=== PATIENT | male | born 1950 | race Caucasian/White ===

== ENCOUNTER → 2025-04-16 09:12 | Outpatient (REF) | payer MEDICARE, OTHER, SELFPAY ==
[2025-04-16 09:53] LABS: Hematocrit 55.4 % (39.0-52.0); Hemoglobin 17.6 g/dL (13.0-18.0); Mean Corp Hgb Conc. 31.8 g/dL (33.0-37.0); Mean Corpuscular Volume 97.5 fL (80.0-94.0); Nucleated Red Blood Cells % 0 % (-); Platelet Count 170 10^3/uL (130-400); Red Cell Dist. Width 14.1 % (11.5-14.5)
[2025-04-16 10:01] LABS: INR 1.28; PT 16.5 Sec (11.4-14.6)
[2025-04-16 11:19] LABS: ALT (SGPT) 20 U/L (0-50); AST (SGOT) 19 U/L (17-59); Albumin 3.9 g/dl (3.5-5.0); Alkaline Phosphatase 78 U/L (38-126); Blood Urea Nitrogen 23 mg/dl (9-20); Calcium 10.0 mg/dl (8.4-10.2); Carbon Dioxide 27 mmol/L (22-30); Chloride 108 mmol/L (98-107); Glucose 114 mg/dl (70-99); Magnesium 2.1 mg/dl (1.6-2.3); Potassium 5.3 mmol/L (3.5-5.1); Sodium 142 mmol/L (135-145); Total Protein 6.5 g/dl (6.3-8.2); eGFR 44.38
== END ==
LOC: SDSPAT 09:12
PROVIDERS: ATTENDING PHYSICIAN Internal Medicine Cardiovascular Disease; FAMILY PHYSICIAN Family Medicine; OTHER PHYSICIAN Internal Medicine Cardiovascular Disease
DX: I48.19 Other persistent atrial fibrillation (principal)
CPT/HCPCS: 36415; 75572; 80053; 83735; 85025; 85610; 86850; 86900; 86901; 93005; Q9967

== ENCOUNTER → 2025-05-01 07:36 | Outpatient (REF) | payer MEDICARE, OTHER, SELFPAY ==
[2025-05-01 09:28] LABS: Blood Urea Nitrogen 26 mg/dl (9-20); Calcium 9.5 mg/dl (8.4-10.2); Carbon Dioxide 33 mmol/L (22-30); Chloride 101 mmol/L (98-107); Glucose 107 mg/dl (70-99); Potassium 3.8 mmol/L (3.5-5.1); Sodium 143 mmol/L (135-145); eGFR 56.93
== END ==
LOC: RAD 07:36
PROVIDERS: ATTENDING PHYSICIAN Physician Assistant
DX: E87.5 Hyperkalemia (principal); J90 Pleural effusion, not elsewhere classified
CPT/HCPCS: 36415; 71046; 80048

== ENCOUNTER 2025-05-08 05:54 | Day surgery (SDC) | payer MEDICARE, OTHER, SELFPAY ==
[2025-04-16 09:28] VITALS: BMI 46.1
--- NOTE | 2025-04-16 09:37 | HPS.HSE ---
Family Physician
-
Family Physician: NO INTERVIEW UNKNOWN
Chief Complaint
-
Persistent atrial fibrillation.
History of Present Illness
The patient is a 74 year old morbidly obese, male presenting today for persistent atrial fibrillation. He does report symptoms of fatigue, intermittent palpitations, exertional dyspnea, and malaise all likely associated with this
diagnosis. He previously underwent a cardioversion in December of this year; unfortunately, his arrhythmia returned within weeks of this procedure. He is on current pharmacological therapy with Metoprolol Succinate. He has failed previous medical
therapy with Multaq. He does report compliance with Eliquis for oral anticoagulation. He notes that his symptoms associated with his arrhythmia greatly interfere with his activities of daily living and overall impact his quality of life. He is
interested in pursuing pulmonary vein isolation for further arrhythmia management. He denies any complaints today such as chest pain, shortness of breath at rest, nausea, vomiting, diarrhea, lightheadedness, dizziness, cough, sore throat, or fever.
Medical History
Past Medical History
Past Medical History: Reports Other
Additional Past Medical History:
1. Persistent atrial fibrillation, status post cardioversion 12/2024; pharmacological therapy with Metoprolol Succinate and oral anticoagulation with Eliquis.
2. Hypertension.
3. Hyperlipidemia.
4. Mild bilateral carotid artery stenosis.
5. Chronic peripheral edema with suspected venous insufficiency.
6. Obstructive sleep apnea, compliant with CPAP (setting 10).
7. Left sided, moderate pleural effusion on chest imaging.
8. Pulmonary nodule.
9. Chronic kidney disease stage 3.
10. Non-insulin dependent diabetes with neuropathy.
11. Nephrolithiasis.
12. Ambulatory dysfunction secondary to right quadriceps injury, status post repair 2023.
13. Sciatica.
14. Osteoarthritis.
15. Prostate cancer, status post prostatectomy.
16. Difficult intubation per records.
17. Morbid obesity, BMI 46.0.
18. Remote history of tobacco abuse.
Past Surgical History: Reports Other
Additional Past Surgical History:
1. Cardioversion.
2. Right quadriceps tendon repair.
3. Prostatectomy.
4. Appendectomy.
5. Kidney stone extraction.
6. Vasectomy.
7. Colonoscopy x2.
Social History
Tobacco: Former Smoker (He is a former remote cigar and pipe smoker. )
Alcohol: None (His last reported alcohol was 6 years ago. )
Personal:
Living: Other (He lives with his in a 1 story home with a basement. )
Family History
Family History: Not pertinent
Allergies / Home Medications
Allergy/Medication List:
Home medications:
1. Eliquis 5 mg p.o. twice a day.
2. Cholecalciferol 50 mcg p.o. daily.
3. Trulicity 1.5 mg subcutaneous on Mondays.
4. Jardiance 25 mg p.o. daily.
5. Furosemide 40 mg p.o. daily as needed.
6. Glipizide 10 mg p.o. twice a day.
7. Krill oil 1 capsule p.o. daily.
8. Lisinopril 40 mg p.o. daily.
9. Metformin 500 mg p.o. daily.
10. Metoprolol Succinate 100 mg p.o. daily.
11. Pioglitazone 30 mg p.o. daily.
12. Probiotic 1 tablet p.o. daily.
13. Simvastatin 20 mg p.o. at bedtime.
14. Shelbi 180 mg p.o. daily as needed.
Allergies: Pollen. No known drug allergies.
Review of Systems
-
A 12 point ROS was completed and negative except as noted: Yes
Physical Exam
Vital Signs
Blood pressure 166/87. Heart rate 52. Respirations 18. Pulse ox 98% on room air.
Height 6 feet. Weight 154 kg. BMI 46.0.
Physical Exam
General: Well Developed, Well Nourished and No Apparent Distress
HEENT: NormoCephalic, Moist mucous membranes, Atraumatic and PERRLA
Respiratory: Non Labored Respirations and Decreased Breath Sounds
Cardiac: Irregular Rhythm
GI: Soft, Non Tender, Non Distended and Other (Morbidly obese. )
Musculoskeletal: Edema, Left Lower Extremity, Edema, Right Lower Extremity and Other (Venous stasis changes to bilateral lower extremities. 2 small, superficial wounds to posterior right leg without visible signs of infection. )
Skin: Warm and Dry
Neuro: AO x 3 and Nonfocal/grossly intact
Laboratory Results
-
DIAGNOSTIC STUDIES as of 04/16/2025: White blood cell count 6.9. Hemoglobin 17.6. Platelet count 170,000. PT 16.5. INR 1.28. Sodium 142. Potassium 5.3. BUN 23. Creatinine 1.6. Glucose 114. Calcium 2.1. AST 19. ALT 20. Type and screen O positive.
DIAGNOSTIC STUDIES as of 05/01/2025: Sodium 143. Potassium 3.8. BUN 26. Creatinine 1.3. Glucose 107. Calcium 9.5.
EKG 04/16/2025: Atrial fibrillation with slow ventricular response. Cannot rule out anterior infarct, age undetermined.
Chest CT 04/16/2025: Short segment common vestibule for the left superior and inferior pulmonary veins, fairly commonly seen and considered normal variant. No evidence for left atrial thrombus. Moderate left pleural effusion with associated
compressive atelectasis. Tiny 4 mm right lower lobe pulmonary nodule, likely benign.
Chest x-ray 05/01/2025: Moderate left pleural effusion, likely with some layering along the lateral chest wall. Left lower lobe airspace disease may also be present.
Impression/Plan
-
IMPRESSION/PLAN:
1. Persistent atrial fibrillation: The patient is in need of a pulmonary vein isolation with Dr. Alphonso Correia on 05/08/2025. The benefits and risks of the procedure have been explained to the patient. The patient understands these risks and wishes
to proceed. He will not be required to undergo a pre-procedural transesophageal echocardiogram as he has been compliant with his home oral anticoagulation. He is aware to continue Eliquis uninterrupted prior to his ablation. He will hold his
Jardiance 3 days prior and Trulicity within 1 week of his procedure. He will take no medications the morning of his ablation.
2. Left sided, moderate pleural effusion on chest imaging: The patient was advised to take his Furosemide daily. He previously reported rare use of this medication due to frequent urination. Despite daily Furosemide use for several days, the
patient's pleural effusion on repeat chest x-ray was still noted to be moderate. His routine cold roll operator, Dr. Dk Hernandez, was notified as his Furosemide dosing may need to adjusted further. Imaging results were discussed with Dr. Correia. We can
still proceed as planned on 05/08/2025. The patient is currently asymptomatic. His oxygen was notably stable on room air.
3. Small, superficial wounds of right lower extremity: As stated previously, his wounds do not appear infectious as of today. He is covering his wounds with a sterile bandage and practicing localized wound care. He was advised to monitor these
wounds closely. Should his wounds appear erythematous, become warm, or drain, he was advised to call his primary care physician immediately for further treatment options.
--- NOTE | 2025-04-18 14:32 | W.SUR.PREOP ---
Pre-Operative Surgical Note
-
Late entry: The patient was noted to have a moderate left pleural effusion with associated compressive atelectasis.
The patient does take Furosemide 40 mg p.o. daily as needed for peripheral edema.
He reports he has not taken it as of recently due urinary frequency while on this medication.
During his pre-op assessment, lung sounds noted to be diminished. Pulse ox 98% and breathing was unlabored. Respirations 18.
Peripheral edema of b/l LEs noted.
Patient denied fever and SOB at that time.
The patient was advised to start taking his Furosemide daily.
He will undergo a chest x-ray and BMP prior to his ablation to ensure stability.
Pt aware of the above and expressed understanding.
--- NOTE | 2025-05-07 08:29 | W.SUR.PREOP ---
Pre-Operative Surgical Note
-
Spoke to patient's primary cemetery worker, Dr. Hernandez, re: moderate pleural effusion noted on repeat imaging.
Per Dr. Hernandez, he would like the patient to proceed as planned with PVI 05/08.
He will address his effusion further at the patient's f/u visit after his procedure.
[2025-05-08] VITALS (9 sets, daily range): BP systolic 122–156; BP diastolic 72–93; BMI 44.1
[2025-05-08 06:57] LABS: Glucose - Point of Care 148 mg/dl (70-99)
[2025-05-08 08:56] LABS: ACT-LR - POC 364 Seconds (116-155)
--- NOTE | 2025-05-08 09:24 | ITS.CL.ABL ---
Scholastic Aptitude Test Grader - Ablation
Ablation
Procedure Report:
ELECTROPHYSIOLOGY ABLATION STUDY
DATE:: May 08, 2025�����������������������������REFERRING: Dr. Dk Hernandez
INDICATION: Persistent supraventricular tachycardia in the form of atrial fibrillation.� As above
HISTORY: See H and P.� As above
ANTIARRHYTHMIC DRUG: Metoprolol
PRE-PROCEDURE DEVAUGHN: Intracardiac ultrasound was utilized with dedicated pictures imaging the entire left atrial appendage and left atrium and there was no thrombus visualized. There was smoke in both right and left atrium. The patient communicated
that his last dose was either Monday evening or Monday morning with Eliquis 5 mg periodically he was on interrupted anticoagulation less than 48 hours. Given no apparent left atrial Penders thrombus we elected to proceed with left atrial access and
ablation as below. We did not enter the left atrial appendage with any of our transseptal or ablation catheter equipment as an extra precaution.
PRESENTING RHYTHM: Atrial fibrillation
'TIME-OUT':��called and confirmed.
SEDATION/ANESTHESIA:��provided via the anesthesia department using general anesthesia (LMA).
INTRAVENOUS/ARTERIAL ACCESS:
Right femoral venous -8Fr
Left femoral venous - 8 Fr, 6 Fr
[id number] suture bilaterally
Ultrasound guidance for bilateral femoral vein access was utilized by me to obtain access with demonstration of normal anatomy
CHADS-VASC Score:
HAS-Bled Score
PROCEDURE:
1.��A decapolar CS catheter was placed within the CS for mapping and pacing.��This was also used as the reference catheter for the 3-D map.
2. The intracardiac ultrasound catheter was positioned in the RA to identify the FO for targeting of transseptal puncture, assist��in identification of the pulmonary vein ostia, monitoring pre and post ablation pulmonary vein flow velocities,
monitoring for 'bubble' formation during RF application as a sign of thermal injury,��and to monitor for pericardial effusion during mapping and ablation procedure.���Left atrial size, LV ejection fraction, and pulmonary vein flows were monitored
pre and post ablation procedure. The other valves were inspected and found to be free of significant regurgitation or stenosis. Trace pericardial effusion pre and post procedure without change.
3.��Half of the calculated heparin bolus was administered prior to the first transeptal puncture.��Transseptal puncture was performed to diagnose RA and LA pressure so that safety of LA mapping and ablation could be further assessed, and to access
the left atrium and pulmonary veins for mapping and ablation.��This entailed advancing an 8 Fr SL-1 sheath with dilator into the superior vena cava and withdrawing both (monitoring intracardiac ultrasound, fluoroscopy and tip pressure) with the tip
oriented toward the atrial septum.��The fossa ovalis was engaged (indicated by sudden displacement of the sheath tip as well as tenting of the fossa seen on intracardiac ultrasound).��Left atrial access required a pass with the Brockenbrough needle
extended.��Left atrial catheter position was confirmed by pressure monitoring (RA mean pressure 4 mm Hg and LA mean presure 12 mm Hg), LA saturation (99%),��as well as fluoroscopy.��The sheath was advanced over the dilator and positioned in the left
atrium.��This procedure was repeated for the Agilis sheath.��The remainder of the calculated heparin bolus was administered and heparin was
infused to maintain ACT at 300 -350 seconds throughout the case.
4.��RA pacing was performed via the proximal decapolar poles and LA pacing was performed via the distal decapolar poles.
5. A quadrapolar catheter was first positioned at the His position for His Bundle recording which was tagged via the TRAtronic, and then passed to the RVA for RV pacing and recording.
6. The 9 mm lattice was placed in each of the LIPV, LSPV, RSPV and the RIPV.��
7.��Next, a 3-D map was created using TRAtronic.���A 3-D reconstructed CT image was compared to the 3-D Medtronic map to assist in anatomic interpretation, mapping and ablation.��The Medtronic image were fused.
8. PFA lesions were given in wide nikolski fashion around the right and left pulmonary veins. A roofline from left superior to right superior pulmonary vein, floor line from right inferior pulmonary vein to left inferior pulmonary vein, and
posterior wall substrate ablation ablation was performed. Atrial fibrillation persisted throughout all of these extra pulmonary vein lesion sets and the patient was converted to sinus rhythm with 1 300 J synchronized biphasic shock. Entrance and
exit block was confirmed in the 4 pulmonary veins as well as the posterior wall roof and floor. The patient was noninducible for any other tachyarrhythmias post procedure.
9. Normal sinus node and able to function noted.
TOTAL FLOURO TIME: 10.1 minutes 123 mGy
TOTAL RF DURATION: 0 minutes
REVERSAL OF HEPARIN: 35 mg of protamine, slow IV administration
COMPLICATIONS:
None
Intracardiac US shows no pericardial effusion post ablation.
SUMMARY:��
Complex left atrial mapping and ablation.
Isolation of all 4 pulmonary veins and the posterior wall as above.
RECOMMENDATIONS:
1. Ambulate in 4 hours
2. Resume anticoagulation
3.��Continue metoprolol
4.��Consider same-day discharge
Copy to: Dr. Dk Hernandez
[2025-05-08 09:26] LABS: Glucose - Point of Care 113 mg/dl (70-99)
[2025-05-08 13:45] LABS: Glucose - Point of Care 140 mg/dl (70-99)
--- NOTE | 2025-05-08 15:02 | W.PN.UPDATE ---
Update Note
Progress Note Update
74 yo WM s/p PVI (Same day). He denies cp, sob, terrance diet, voiding, b/l groins c/d/i no HT, soft, EKG SR 1 deg AVB. He will resume Eliquis tonight and continue metoprolol. Activity restrictions reviewed. He will f/u Dr. Hernandez in 3 mo. He is for d/c
home after 215p if groins remain stable.
== END 2025-05-08 14:20 | disposition home or self-care (01) ==
LOC: CATH 05:54
PROVIDERS: ATTENDING PHYSICIAN Internal Medicine Cardiovascular Disease; FAMILY PHYSICIAN Family Medicine; OTHER PHYSICIAN Internal Medicine Cardiovascular Disease
DX: I48.19 Other persistent atrial fibrillation (principal); E66.01 Morbid (severe) obesity due to excess calories; Z68.42 Body mass index [BMI] 45.0-49.9, adult; E11.22 Type 2 diabetes mellitus with diabetic chronic kidney disease; E11.40 Type 2 diabetes mellitus with diabetic neuropathy, unspecified; Z79.01 Long term (current) use of anticoagulants; E78.5 Hyperlipidemia, unspecified; G47.33 Obstructive sleep apnea (adult) (pediatric); I12.9 Hypertensive chronic kidney disease with stage 1 through stage 4 chronic kidney disease, or unspecified chronic kidney disease; I25.2 Old myocardial infarction; J90 Pleural effusion, not elsewhere classified; I47.10 Supraventricular tachycardia, unspecified; N18.30 Chronic kidney disease, stage 3 unspecified; M19.90 Unspecified osteoarthritis, unspecified site; Z87.891 Personal history of nicotine dependence; Z79.4 Long term (current) use of insulin; Z79.84 Long term (current) use of oral hypoglycemic drugs; Z79.85 Long-term (current) use of injectable non-insulin antidiabetic drugs; Z79.899 Other long term (current) drug therapy; Z90.49 Acquired absence of other specified parts of digestive tract; Z90.79 Acquired absence of other genital organ(s); Z87.442 Personal history of urinary calculi
CPT/HCPCS: C1733; C1894; C1730; C1766; C1892; C1759; 82962; 85347; 86900; 86901; 93005; 93656; 93657